=== PATIENT | female | born 1970 | race Caucasian/White ===

== ENCOUNTER 2017-09-23 12:11 | Emergency (ER) | payer OTHER ==
[~2017-09-23] VITALS: Ht 149.9 cm; Wt 68.0 kg
[~2017-09-23 12:11] MED LIST: LISINOPRIL10 M1 PO; NORVASC2.5 M1 PO
--- NOTE | 2017-09-23 13:19 | RADIOLOGY REPORT ---
EXAMINATION: XR KNEE, LEFT CLINICAL INFORMATION: Left knee pain after hitting against a trailer hitch. Fracture. COMPARISON: None TECHNIQUE: Four views of the left knee. FINDINGS: No fracture or dislocation seen. Joint spaces are maintained. No joint effusion. There is a small osteochondroma arising from the cortex of the posterior lateral distal femoral diaphysis. IMPRESSION: No acute osseous abnormality.
--- NOTE | 2017-09-23 13:45 | ED GENERAL ADULT ---
History of Present Illness General Chief Complaint: Lower Extremity Injury Stated Complaint: L KNEE PAIN Source: patient Exam Limitations: no limitations Vital Signs & Intake/Output Vital Signs & Intake/Output Vital Signs Date Time Temp Pulse Resp B/P B/P Pulse O2 O2 Flow FiO2 Mean Ox Delivery Rate 09/23 1404 98.0 71 16 148/74 98 Room Air 09/23 1252 Room Air 09/23 1226 98.1 69 18 162/79 97 Room Air Allergies Coded Allergies: Penicillins (UNKNOWN PER PT 01/14/17) Reconcile Medications No Known Home Medications Triage Note: PT FROM HOME C/O LT KNEE INJURY Sunday. PT STATES SHE HIT HER LT KNEE ON A "HITCH" ON HER CAR. PT DENIES PAIN, "JUST HEAVINESS". PT ABLE TO AMBUALTE. PT STATES MEDICATED WITH NAPROXEN ON SUNDAY WITH NO RELIEF. PT PROVIDED WITH AN ICE PACK IN TRIAGE. VSS. Triage Nurses Notes Reviewed? yes Onset: Abrupt Duration: day(s): (3), constant, continues in ED, getting worse Timing: single episode today Injury Environment: home Severity: mild, moderate Severity Numbers: 6 No Modifying Factors: none Modifying Factors: Worsens With: medication. : No Patient currently breastfeeds: No HPI: 47 year old female no medical hx presents for eval of left knee pain. Patient states that 3 days ago she hit her knee against a trailer hitch. There was no fall. States that since then the pain and swelling is gotten worse. She reports pain located to the anterior knee and swelling over the inferior aspect of the knee joint. The pain is worse with movement. She denies any numbness or tingling she is able to walk. She has been taking naproxen without much improvement. (Nikunj Collins) Past History Travel History Traveled to [place] past 21 day No Medical History Any Pertinent Medical History? 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 No (Nikunj Collins) Review of Systems Review of Systems Constitutional: Reports: no symptoms. EENTM: Reports: no symptoms. Respiratory: Reports: no symptoms. Cardiovascular: Reports: no symptoms. GI: Reports: no symptoms. Genitourinary: Reports: no symptoms. Musculoskeletal: Reports: joint pain, joint swelling, muscle pain, muscle stiffness. Skin: Reports: no symptoms. Neurological/Psychological: Reports: no symptoms. Hematologic/Endocrine: Reports: no symptoms. Immunologic/Allergic: Reports: no symptoms. All Other Systems: Reviewed and Negative (Nikunj Collins) Physical Exam Physical Exam General Appearance: well developed/nourished, no apparent distress, alert, awake Head: atraumatic, normal appearance Eyes: Bilateral: normal appearance, EOMI. Ears, Nose, Throat: hearing grossly normal Neck: normal inspection, supple, full range of motion Respiratory: no respiratory distress Cardiovascular: normal peripheral pulses Peripheral Pulses: 2+ tibialis posterior (R), 2+ tibialis posterior (L), 2+ dorsalis pedis (R), 2+ dorsalis pedis (L) Back: normal inspection, normal range of motion, no vertebral tenderness Extremities: there is swelling over the inferior and anterior aspects of the knee. There is tenderness over the anterior right knee. No gross deformity. Full range of motion intact with pain during flexion and extension. No erythema or bruising. Neurovascular supply is intact other joint swelling or pain Neurologic/Psych: no motor/sensory deficits, awake, alert, oriented x 3, normal gait, normal mood/affect Skin: intact, normal color, warm/dry Core Measures ACS in differential dx? No CVA/TIA Diagnosis: No Sepsis Present: No Sepsis Focused Exam Completed? No (Nikunj Collins) Progress Differential Diagnoses I considered the following diagnoses in my evaluation of the patient: [Contusion , sprain, fracture] Plan of Care: Patient is here for evaluation of left knee pain. She hit her knee against a trailer hitch 3 days ago. On exam she has pain and swelling over the anterior knee. Pain is reproducible with range of motion and weightbearing. Neurovascular supply is intact is no gross deformity. X-rays were obtained and are negative for acute fracture. Advise rest ice elevation compression. Tylenol and Profen for pain. Patient declines any additional pain medication. Paul wrap applied. Patient declines crutches. Discussed return precautions patient agrees the plan Diagnostic Imaging: Viewed by Me: Radiology Read. Discussed w/RAD: Radiology Read. Radiology Impression: PATIENT: DAVID HUTSON PRESENT AGE: 47 PATIENT ACCOUNT NO: [id number] : 70 LOCATION: [facility] ORDERING PHYSICIAN: Nikunj DURANT SERVICE DATE: 09/23/17 EXAM TYPE: RAD - XRY- KNEE COMPLETE LEFT EXAMINATION: XR KNEE, LEFT CLINICAL INFORMATION: Left knee pain after hitting against a trailer hitch. Fracture. COMPARISON: None TECHNIQUE : Four views of the left knee. FINDINGS: No fracture or dislocation seen. Joint spaces are maintained. No joint effusion. There is a small osteochondroma arising from the cortex of the posterior lateral distal femoral diaphysis. IMPRESSION: No acute osseous abnormality. 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 < Electronically signed in Other Vendor System> Initial ED EKG: none (Nikunj Collins) Departure Departure Disposition: HOME OR SELF CARE Condition: Stable Clinical Impression Primary Impression: Knee pain, left Qualifiers: Chronicity: acute Qualified Code: M25.562 - Pain in left knee Referrals: Rufina LOREDO,Goyo Gaston MD,Laura Pro (PCP/Family) Additional Instructions: Rest, keep YOUR KNEE elevated, apply ice 15-20 minutes every few hours. Tylenol and ibuprofen for pain. Wear Paul wrap. Make a follow-up with Dr. Almaraz. Monitor symptoms of worsening pain worsening swelling redness or any other concerns return immediately. Departure Forms: Customer Survey General Discharge Information Prescriptions: Current Visit Scripts No Known Home Medications (Nikunj Collins) PA/SECURITY OPERATIONS SPECIALIST Co-Sign Statement Statement: ED Attending supervision documentation- [] I saw and evaluated the patient. I have also reviewed all the pertinent lab results and diagnostic results. I agree with the findings and the plan of care as documented in the PA's/SECURITY OPERATIONS SPECIALIST's documentation. [x] I have reviewed the ED Record and agree with the PA's/SECURITY OPERATIONS SPECIALIST's documentation. [] Additions or exceptions (if any) to the PAs/SECURITY OPERATIONS SPECIALIST's note and plan are summarized below: [] (Mack LOREDO,[facility]) Critical Care Note Critical Care Note Critical Care Time: non-applicable (Stephane DURANT,Nikunj)
[2017-09-23 14:04] VITALS: BP 148/74
== END 2017-09-23 14:05 ==
LOC: ERH 12:11
DX: M25.562 Pain in left knee (principal)
CPT/HCPCS: 73562-LT